=== PATIENT | female | born 1950 | race Caucasian/White ===

== ENCOUNTER 2022-07-11 13:32 | Outpatient (CLI) | payer MEDICARE, SELFPAY | END 2022-07-11 13:33 | disposition home or self-care (01) | LOC: AMB 08-01 02:43 | PROVIDERS: Visit Provider Family Medicine | DX: S89.91XA Unspecified injury of right lower leg, initial encounter (principal); X58.XXXA Exposure to other specified factors, initial encounter; Y92.9 Unspecified place or not applicable | CPT/HCPCS: A0425; A0427 ==

== ENCOUNTER 2022-07-11 17:17 | Outpatient (CLI) | payer MEDICARE, SELFPAY | END 2022-07-11 17:18 | disposition home or self-care (01) | LOC: AMB 08-01 15:45 | PROVIDERS: Visit Provider Family Medicine | DX: S72.401S Unspecified fracture of lower end of right femur, sequela (principal) | CPT/HCPCS: A0425; A0426; A0427 ==